=== PATIENT | female | born 1960 | race Caucasian/White ===

== ENCOUNTER 2020-08-06 12:04 | Emergency (ER) | payer SELFPAY ==
[~2020-08-06] VITALS: Ht 160 cm; Wt 66.8 kg
[2020-08-06 13:21] VITALS: BP 110/90; Ht 160 cm; Wt 66.8 kg
== END 2020-08-06 16:30 | disposition home or self-care (01) ==
LOC: ED 12:04
DX: K59.00 Constipation, unspecified (principal); Z88.2 Allergy status to sulfonamides; Z88.0 Allergy status to penicillin